=== PATIENT | female | born 1980 | race Caucasian/White ===

== ENCOUNTER 2019-12-17 11:19 | Inpatient (IN) | payer SELFPAY ==
[2019-12-17] VITALS (131 sets, daily range): BP systolic 99–135; BP diastolic 73–98; PULSE 77–86; TEMP 98.7–98.9; O2SAT 95–100
[~2019-12-17] VITALS: Ht 160 cm; Wt 56.0 kg
[~2019-12-17 11:19] MED LIST: PRENATAL VITAMI1 TA5 PO
[2019-12-17 12:50] LABS: BASO # 0.1 (0.0-0.2); BASO % 0.9 % (0.0-2.0); EOS # 0.2 (0.0-0.7); EOS % 2.4 % (0-4.0); GRAN # 4.4 (1.4-6.5); GRAN % 66.6 % (42.2-75.2); LYMPH # 1.3 (1.2-3.4); LYMPH % 19.2 % (20.0-51.0); MEAN CORPUSCULAR HGB CONC 33 g/dl (33.0-37.0); MEAN PLATELET VOLUME 9.3 fl (7.4-10.4); MONO # 0.7 (0.1-0.6); MONO % 10.4 % (1.7-9.3); PLATELET COUNT 149 K/mm3 (130-400); RED BLOOD COUNT 2.64 M/mm3 (4.10-5.30); REDCELL DISTRIBUTION WIDTH-CV 14.5 % (11.5-14.5)
[2019-12-17 12:52] LABS: HEMATOCRIT 28.5 % (37.0-47.0); HEMOGLOBIN 9.5 g/dl (12.5-16.0); MEAN CORPUSCULAR HEMOGLOBIN 36 pg (27.0-31.0)
[2019-12-17 12:53] LABS: MEAN CELL VOLUME 108 fl (80.0-100.0)
[2019-12-17 12:59] LABS: INR 1.1 (0.8-3.0); PROTHROMBIN TIME 12.5 SECONDS (9.7-12.8)
[2019-12-17 13:00] LABS: ALANINE AMINOTRANSFERASE 54 U/L (4-34); ALBUMIN 2.9 gm/dL (3.5-5.0); ALKALINE PHOSPHATASE 292 U/L (50-136); ANION GAP 7 mmol/L (7-16); AST,SGOT 124 U/L (15-37); BILIRUBIN,TOTAL 1.1 mg/dL (0.0-1.0); BLOOD UREA NITROGEN 8 mg/dL (7-17); CALCIUM 8.7 mg/dL (8.4-10.2); CARBON DIOXIDE 27 mmol/L (22-30); CHLORIDE 104 mmol/L (98-107); CREATININE, serum 0.57 (0.52-1.25); GLUCOSE 97 mg/dL (74-106); LIPASE 766 U/L (23-300); MAGNESIUM 1.3 mg/dL (1.6-2.3); SODIUM 138 mmol/L (137-145); TOTAL PROTEIN 6.5 gm/dL (6.4-8.2)
[2019-12-17 13:01] LABS: PARTIAL THROMBOPLASTIN TIME 29.1 SECONDS (26.0-37.0)
[2019-12-17 13:03] LABS: ALCOHOL(ethanol),MEDICAL < 10 mg/dL; POTASSIUM 1.7 mmol/L (3.4-5.0)
[2019-12-17 13:28] LABS: TROPONIN-I < 0.012 ng/mL (0.000-0.035)
[2019-12-17 13:58] LABS: COLLECTION METHOD CLEAN CATCH
[2019-12-17 14:17] LABS: PH 9 (5-8); SQUAMOUS EPITHELIAL 0-2 /hpf; URINE APPEARANCE Hazy; URINE BACTERIA None Seen /hpf; URINE BILIRUBIN Negative (NEGATIVE); URINE BLOOD Negative (NEGATIVE); URINE COLOR Yellow; URINE GLUCOSE Negative (NEGATIVE); URINE KETONE Negative (NEGATIVE); URINE LEUKOCYTE ESTERASE Negative (NEGATIVE); URINE NITRATE Negative (NEGATIVE); URINE PROTEIN(semi-quant) Negative (NEGATIVE); URINE RBC 0-2 /hpf; URINE UROBILINOGEN Negative (NEGATIVE)
[2019-12-17] MEDS ORDERED: PROBIOTIC ACID1 EAC3 PO (16:39)
[2019-12-17] MEDS ORDERED: POTASSIUM PO (16:40)
[2019-12-17] MEDS ORDERED: PANCREAZE 437501 ECC PO (16:41)
[2019-12-17] MEDS ORDERED: CENTRUM CHEWAB1 EAC3 PO (16:43)
[2019-12-17 17:00] LABS: CALCIUM 7.9 mg/dL (8.4-10.2); CREATININE, serum 0.51 (0.52-1.25); MAGNESIUM 1.9 mg/dL (1.6-2.3)
[2019-12-17 17:26] LABS: POTASSIUM 1.8 mmol/L (3.4-5.0)
--- NOTE | 2019-12-17 19:00 | NUR ---
Patients admission assessment and medlist have completed. She is not sure of the dose of her potassium she takes at home. Her pain is being controlled with dilauded. She has been able to get up to the bathroom with standby assist but moves very slowly. Nausea has been better since getting to the unit from ED. Dr Dykes has been notified of consult. Oriented patient to room. No other changes at this time. Patient is aware she can not eat or drink after midnight. She will be having a paracentesis in the morning. Call light within reach.
[2019-12-18] VITALS (284 sets, daily range): BP systolic 95–158; BP diastolic 69–97; PULSE 74–87; TEMP 97.3–99.1; O2SAT 68–100
[2019-12-18 05:22] LABS: BASO # 0.1 (0.0-0.2); BASO % 0.6 % (0.0-2.0); EOS # 0.3 (0.0-0.7); EOS % 3.7 % (0-4.0); GRAN # 5.3 (1.4-6.5); GRAN % 67.9 % (42.2-75.2); LYMPH # 1.4 (1.2-3.4); LYMPH % 17.6 % (20.0-51.0); MEAN CELL VOLUME 108 fl (80.0-100.0); MEAN CORPUSCULAR HGB CONC 34 g/dl (33.0-37.0); MEAN PLATELET VOLUME 9.1 fl (7.4-10.4); MONO # 0.8 (0.1-0.6); MONO % 9.8 % (1.7-9.3); PLATELET COUNT 137 K/mm3 (130-400); RED BLOOD COUNT 2.45 M/mm3 (4.10-5.30); REDCELL DISTRIBUTION WIDTH-CV 14.5 % (11.5-14.5)
[2019-12-18 05:27] LABS: HEMATOCRIT 26.5 % (37.0-47.0); HEMOGLOBIN 8.9 g/dl (12.5-16.0); MEAN CORPUSCULAR HEMOGLOBIN 36 pg (27.0-31.0)
[2019-12-18 05:31] LABS: ALBUMIN 2.5 gm/dL (3.5-5.0); BILIRUBIN,TOTAL 1.4 mg/dL (0.0-1.0); CALCIUM 7.1 mg/dL (8.4-10.2); CREATININE, serum 0.52 (0.52-1.25); MAGNESIUM 2.3 mg/dL (1.6-2.3); TOTAL PROTEIN 5.7 gm/dL (6.4-8.2)
[2019-12-18 05:33] LABS: POTASSIUM 2.7 mmol/L (3.4-5.0)
--- NOTE | 2019-12-18 14:34 | NUR ---
Branch Chief met with the patient to complete initial intake. The patient lives in [place] with her , Silvia. The patient denies DME use and is independent. The patient's PCP is Marilu Latif APRN and receives medications from [facility] and/or from [facility] in . The patient does not have advanced directives and was not interested in DPOA-HC form. The patient plans to return home at discharge with her . SW addressed the patient's alcohol use. The patient drinks alcoholic beverages daily. The patient states, "I am not an alcoholic." The patient declined treatment. The patient is self-pay. Heather Rogers was consulted. The patient has no anticipated discharge needs.
[2019-12-18 15:07] LABS: PERITONEAL -POLYMORPHONUCLEAR 42.7 % (0-25); PERITONEAL FLUID RBC 16000 /mm3 (0-0)
[2019-12-18 15:46] LABS: CLOSTRIDIUM DIFF A/B NEG; CLOSTRIDIUM DIFF A/B INTERP NonToxigenic C.diff
[2019-12-19 00:02] VITALS: BP 127/97; PULSE 78; TEMP 99
[2019-12-19 01:31] LABS: FOLATE (FOLIC ACID) 15.2 ng/mL (7.0-31.4)
[2019-12-19 04:29] VITALS: BP 129/91; PULSE 78; TEMP 99.1
[2019-12-19 06:04] LABS: ALBUMIN 2.3 gm/dL (3.5-5.0); BILIRUBIN,TOTAL 0.8 mg/dL (0.0-1.0); CALCIUM 6.5 mg/dL (8.4-10.2); CREATININE, serum 0.52 (0.52-1.25); MAGNESIUM 1.5 mg/dL (1.6-2.3); TOTAL PROTEIN 5.5 gm/dL (6.4-8.2)
[2019-12-19 06:05] LABS: POTASSIUM 2.9 mmol/L (3.4-5.0)
--- NOTE | 2019-12-19 06:17 | NUR ---
MG 1.5 CALLED TO ROBERTO SINGH. NEW ORDERS FOR 3G IV MG REPLACEMENT.
--- NOTE | 2019-12-19 07:30 | NUR ---
Report given to HIWOT Martinez
--- NOTE | 2019-12-19 07:47 | NUR ---
Pt transffered to room 355, report called to RN prior to transfer. All belongings sent with pt at transfer. Pt alert and oriented at time of transfer.
[2019-12-19 08:00] VITALS: BP 122/86; PULSE 91; TEMP 98.2
--- NOTE | 2019-12-19 08:43 | NUR ---
potassium 40meq was running, patient iv medications by herself. she state she cannot take it anymore, she has been running to the bathoom too often. she refuse all IV medication. am Potassium 2.9.
[2019-12-19] MEDS ORDERED: VANCOCIN H125 MG/CAP PO (11:39)
[2019-12-19] MEDS ORDERED: OMNICEF 300MG300 MG PO (11:41)
[2019-12-19 11:51] VITALS: BP 131/98; PULSE 86; TEMP 98.1
== END 2019-12-19 12:24 | disposition left against medical advice (07) | DRG 372 ==
LOC: COL.ER 11:19 → ICU 13:49 → EDBEDREQTM 14:34 → EDBEDREQ 14:34 → EDBEDREQSVC 14:34 → MEDICAL 12-19 07:40
PROVIDERS: Emergency Medicine; Physician Assistant; ADMIT Internal Medicine
PROC: 0W9G3ZZ Drainage of Peritoneal Cavity, Percutaneous Approach (ICD-10-PCS; principal; 2019-12-17)
DX: K65.2 Spontaneous bacterial peritonitis (principal); A04.72 Enterocolitis due to Clostridium difficile, not specified as recurrent; R18.8 Other ascites; K86.3 Pseudocyst of pancreas; K86.1 Other chronic pancreatitis; K74.60 Unspecified cirrhosis of liver; E83.42 Hypomagnesemia; R07.89 Other chest pain; E87.6 Hypokalemia; F17.210 Nicotine dependence, cigarettes, uncomplicated; D64.9 Anemia, unspecified; Z53.29 Procedure and treatment not carried out because of patient's decision for other reasons
CPT/HCPCS: 99223-AI; 99232-AI; 99239; J0696; J1170; J2405; J3010; J3475; J3480; J7030; Q9967

== ENCOUNTER → 2019-12-26 | Outpatient (CLI) | payer SELFPAY ==
[~2019-12-26] MED LIST changes: +CENTRUM CHEWAB1 EAC3 PO; +OMNICEF 300MG300 MG PO; +PANCREAZE 437501 ECC PO; +POTASSIUM PO; +PROBIOTIC ACID1 EAC3 PO; +VANCOCIN H125 MG/CAP PO
== END ==
LOC: ZCOL.LAB 14:01
DX: G52.0 Disorders of olfactory nerve (principal); R05 Cough; R06.02 Shortness of breath; R19.7 Diarrhea, unspecified; R11.2 Nausea with vomiting, unspecified; Z20.828 Contact with and (suspected) exposure to other viral communicable diseases

== ENCOUNTER 2019-12-31 09:39 | Day surgery (SDC) | payer SELFPAY ==
--- NOTE | 2019-12-19 14:00 | NUR ---
Patient left against medical advise. Patient was informed she is not medically stable to discharge. Patient insisted she wants to go home. She removed two INT site on her left AC. patient was escorted outside the buiding by a nurse aide. AMA paper signed by patient.
[~2019-12-31] VITALS: Ht 160 cm; Wt 56.2 kg
[2019-12-31] MEDS ORDERED: MAGNESIUM ELEME30 MG PO (10:12)
[2019-12-31 10:13] VITALS: BP 133/90; PULSE 73; TEMP 97.9
[2019-12-31 11:35] VITALS: BP 120/86; PULSE 80; TEMP 98.1
--- NOTE | 2019-12-31 11:35 | NUR ---
1135-Patient ambulated with standby assistance from cart to recliner and she did well. Connected to monitors and vitals remain stable. Given additional warm blankets for comfort. Given coffee per request. She denies having any pain or nausea at present.
[2019-12-31 11:50] VITALS: BP 119/86; PULSE 67
--- NOTE | 2019-12-31 11:52 | NUR ---
1150-Patient continues doing well and vitals remain stable. Tolerating coffee. Declines food at this time.
[2019-12-31 12:05] VITALS: BP 130/74; PULSE 70; TEMP 98
--- NOTE | 2019-12-31 12:09 | NUR ---
1205-Vitals remain stable and patient is doing well. Requesting to get dressed for discharge home. IV site removed and tip of catheter is intact. Cotton ball and coban wrap applied. She continues to deny nausea or pain. Tolerating coffee well. Will prepare discharge instructions and dc home shortly.
--- NOTE | 2019-12-31 12:26 | NUR ---
1220-Patient is dressed and ready for discharge home. Discussed discharge instructions and questions and concerns addressed. She will follow up with her PCP on Sunday as planned. Awaiting her ride and will discharge home shortly. Additional cup of coffee given.
--- NOTE | 2019-12-31 12:31 | NUR ---
1230-Taken via wheelchair to [facility] lobby for discharge home and assisted into private vehicle. Discharge instructions and belongings with her.
== END 2019-12-31 12:33 | disposition home or self-care (01) ==
LOC: SDCO 09:39
DX: K59.00 Constipation, unspecified (principal); K86.1 Other chronic pancreatitis; K64.0 First degree hemorrhoids; K52.9 Noninfective gastroenteritis and colitis, unspecified; D64.9 Anemia, unspecified; K21.00 Gastro-esophageal reflux disease with esophagitis, without bleeding; K29.50 Unspecified chronic gastritis without bleeding; K25.7 Chronic gastric ulcer without hemorrhage or perforation; Z88.6 Allergy status to analgesic agent; Z90.710 Acquired absence of both cervix and uterus; F17.210 Nicotine dependence, cigarettes, uncomplicated; Z85.42 Personal history of malignant neoplasm of other parts of uterus
CPT/HCPCS: J2704; J7030

== ENCOUNTER 2020-04-27 18:06 | Emergency (ER) | payer OTHER ==
[~2020-04-27] VITALS: Ht 160 cm; Wt 45.5 kg
[~2020-04-27 18:06] MED LIST changes: +MAGNESIUM ELEME30 MG PO
[2020-04-27 18:15] VITALS: TEMP 98.6
[2020-04-27 18:35] LABS: HEMATOCRIT 37.5 % (37.0-47.0); HEMOGLOBIN 12.9 g/dl (12.5-16.0); MEAN CELL VOLUME 101 fl (80.0-100.0); MEAN CORPUSCULAR HEMOGLOBIN 35 pg (27.0-31.0); MEAN CORPUSCULAR HGB CONC 34 g/dl (33.0-37.0); MEAN PLATELET VOLUME 8.8 fl (7.4-10.4); PLATELET COUNT 216 K/mm3 (130-400); RED BLOOD COUNT 3.72 M/mm3 (4.10-5.30); REDCELL DISTRIBUTION WIDTH-CV 16.1 % (11.5-14.5)
[2020-04-27 18:49] LABS: ALANINE AMINOTRANSFERASE 50 U/L (4-34); ALBUMIN 4.1 gm/dL (3.5-5.0); ALKALINE PHOSPHATASE 240 U/L (50-136); ANION GAP 11 mmol/L (7-16); AST,SGOT 116 U/L (15-37); BILIRUBIN,TOTAL 1.3 mg/dL (0.0-1.0); BLOOD UREA NITROGEN 15 mg/dL (7-17); C-REACTIVE PROTEIN 1.3 mg/dL (0.0-0.9); CALCIUM 9.9 mg/dL (8.4-10.2); CARBON DIOXIDE 31 mmol/L (22-30); CHLORIDE 91 mmol/L (98-107); CREATININE, serum 1.07 (0.52-1.25); GLUCOSE 117 mg/dL (74-106); LIPASE 198 U/L (23-300); POTASSIUM 4.3 mmol/L (3.4-5.0); SODIUM 133 mmol/L (137-145); TOTAL PROTEIN 7.6 gm/dL (6.4-8.2)
[2020-04-27 19:09] LABS: BAND 1 % (0-10); EOSINOPHIL 5 % (0-4); LYMPHOCYTE 17 % (20.0-51.0); NEUTROPHILS 67 % (42.0-75.2)
[2020-04-27 19:10] LABS: TROPONIN-I < 0.012 ng/mL (0.000-0.035)
[2020-04-27 19:11] LABS: ANISOCYTOSIS 1+; PLATELET ESTIMATE NORMAL (NORMAL)
[2020-04-27 19:30] LABS: COLLECTION METHOD CLEAN CATCH
[2020-04-27 19:46] LABS: MUCOUS Present /lpf; PH 8 (5-8); URINE APPEARANCE Hazy; URINE BACTERIA Rare /hpf; URINE BILIRUBIN Positive (NEGATIVE); URINE BLOOD Negative (NEGATIVE); URINE COLOR Amber; URINE GLUCOSE Negative (NEGATIVE); URINE KETONE Trace (NEGATIVE); URINE LEUKOCYTE ESTERASE Trace (NEGATIVE); URINE NITRATE Negative (NEGATIVE); URINE PROTEIN(semi-quant) 2+ (NEGATIVE); URINE RBC 0-2 /hpf; URINE WBC 0-2 /hpf
[2020-04-27 20:19] LABS: TRICYCLIC ANTIDEPRESS URINE NEGATIVE
[2020-04-27 20:26] LABS: HIV 1/2 Antibodies Non-Reactive; HIV-1p24 Antigen Non-Reactive
[2020-04-27 22:15] VITALS: BP 91/63; PULSE 98
== END 2020-04-27 22:15 | disposition short-term general hospital (02) ==
LOC: COL.ER 18:06
PROVIDERS: Nurse Practitioner Primary Care
DX: K86.89 Other specified diseases of pancreas (principal); F10.20 Alcohol dependence, uncomplicated; R74.01 Elevation of levels of liver transaminase levels; Z88.6 Allergy status to analgesic agent; Z88.8 Allergy status to other drugs, medicaments and biological substances
CPT/HCPCS: J2060; J2270; J2405; J7030; Q9967